=== PATIENT | female | born 1945 | race African-American/Black ===

== ENCOUNTER 2017-04-02 12:16 | Inpatient (IN) ==
[2017-04-02] MEDS ORDERED: LINACLOTIDE 145 MCG CAPSULE PO PRN (17:02)
[2017-04-02] MEDS ORDERED: ACETAMINOPHEN 325 MG TABLET PO PRN (17:03)
[2017-04-02] MEDS ORDERED: SODIUM CHLORIDE 0.9% 250 ML IV PRN (17:12)
--- NOTE | 2017-04-02 17:15 | Nephrology History & Physical ---
History of Present Illness Chief complaint: Anemia, fatigue, chronic kidney disease History of present illness: Mrs. Alejandre is a 71 year old female with history of hypertension GERD who presents with approximately 4 month history of increasing serum creatinine that started in October of this year. At that time patient was dealing with anemia she has had a history of a knee scope to look at the causes of the anemia and so far no cause has been found. However over the last several months, serum creatinine is trended up from 1-3 now up to 4. Patient was seen in clinic today and was found to have serum creatinine of 4.4. Moreover she has received 2 units packed red blood cells and at present hemoglobin is noted to be 8.1. Again patient does feel short of breath and fatigue at times. No rashes or bruises reported by the patient. No swelling of the legs. No joint aches or pains. She has been admitted at this particular time for further workup of her progressive renal failure as well as anemia. She has agreed to undergo a kidney biopsy for further evaluation. On outpatient basis, patient had a positive M spike on her electrophoresis. She is also been seen by hematology and at present further monitoring has been advised. 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 1 tablet PO DAILY 04/02/17 04/02/17 History [Calcium 600-D3 Plus Caplet] Cetirizine Tab [ZyrTEC Tab] 1 tablet PO DAILY 04/02/17 04/02/17 History Cyanocobalamin (Vitamin B-12) 1 tablet PO DAILY 04/02/17 04/02/17 History [Vitamin B-12] Linaclotide [Linzess] 1 capsule PO DAILY PRN 04/02/17 04/02/17 History Multivit-Min/FA/Lycopen/Lutein 1 tablet PO DAILY 04/02/17 04/02/17 History [Centrum Silver Tablet] Omeprazole 10 mg PO DAILY 04/02/17 04/02/17 History Oxybutynin [Ditropan] 5 mg PO DAILY 04/02/17 04/02/17 History Simvastatin [Zocor] 80 mg PO PC SUPPER 04/02/17 04/02/17 History amLODIPine [Norvasc] 10 mg PO DAILY 04/02/17 04/02/17 History Allergies Allergy/AdvReac Type Severity Reaction Status Date / Time augumentin Allergy Unknown Uncoded 04/02/17 15:45 Medical,Surgical,& Family Hx - Medical History Cardio: History of: Hypertension Psychological: No history of: Anxiety Disorders, ADHD, Behavior Problems, Bipolar Disorder, Depression, Previous Suicide Attempt, Psychiatric/Substance Abuse Tx, Schizophrenia, Violent Behavior, Psychiatric Problems Genitourinary: History of: Problems (bladder sling ) - Family History Family History: Reports;: Family Cancer, Family Heart Disease, Family Hypertension - Social History Smoking Status: Never smoker Frequency of Alcohol Use: None Type of Drug Use: None Exam - Nephrology - Vital Signs Vital signs: Vital Signs Temp Pulse Resp BP Pulse Ox 04/02/17 15:03 97.4 F L 98 H 20 111/71 100 - General Appearance General appearance: well-developed, well-nourished, fatigue EENT: ATNC Neck: supple Respiratory: clear Cardiology: regular rate, regular rhythm Gastrointestinal: normoactive bowel sounds, no masses Integumentary: no rash Neurologic: no focal deficit, alert and oriented x3, CN 3-12 intact Musculoskeletal: no erythema, no clubbing Psychiatric: mood/affect appropriate, cooperative Assessment and Plan (1) Anemia Status: Acute Assessment and plan: Etiologies and question for the anemia. B12 folate level. PT PTT. Iron iron sat. CBC in a.m. Current Visit: Yes Qualifiers: Anemia type: due to chronic kidney disease (2) Chronic kidney disease Status: Acute Assessment and plan: Appears to be acute renal failure versus acute on chronic renal failure. That is the nature of this admission at this time. Differential includes glomerulonephritis, focal segmental glomerulosclerosis, hypertension Plan for a kidney biopsy. Current Visit: Yes Qualifiers: Chronic kidney disease stage: stage 3 (moderate) Qualified Code(s): N18.3 - Chronic kidney disease, stage 3 (moderate) (3) Fatigue Status: Chronic Assessment and plan: Due to anemia Current Visit: Yes (4) Acute on chronic renal failure Status: Acute Assessment and plan: UA. Renal ultrasound is unremarkable. Kidney size noted to be 9 cm bilaterally. No evidence of hydronephrosis. Plan for a kidney biopsy on Sunday. Hepatitis panel, C3-C4, anti-GBM antibody, GIULIANA, hepatitis panel Current Visit: Yes (5) Hypertension Status: Chronic Current Visit: Yes Qualifiers: Hypertension type: essential hypertension Qualified Code(s): I10 - Essential (primary) hypertension
[2017-04-02 17:35] LABS: Basophils % 0.2 % (0.0-0.8); Eosinophils # 0.1 10*3/uL (0.0-0.87); Hematocrit 23.3 VOL% (35.7-47.0); Hemoglobin 7.8 GM/DL (12.0-16.0); Immature Granulocytes Absolute 0.09 #; Lymphocytes # 3.1 10*3/uL (1.4-4.0); Mean Corpuscular HGB Conc 33.5 GM/DL (32-36); Mean Corpuscular Hemoglobin 31 PG (27-34); Mean Corpuscular Volume 91.7 FL (87-102); Mean Platelet Volume 10.2 FL (9.6-12.0); Monocytes # 0.8 10*3/uL (0.11-0.8); Monocytes % 8.9 % (1.7-12.7); Neutrophils # 4.6 10*3/uL (1.4-7.4); Neutrophils % 52.9 % (38.7-73.9); Platelet Count 197 T/CUMM (130-400); Red Blood Count 2.54 MC/CUMM (3.8-5.5); Red Cell Distribution Width 14.3 % (9.3-17.3); White Blood Count 8.7 T/CUMM (4-12)
[2017-04-02 18:08] LABS: PT Patient Result 10.8 SECS; Partial Thromboplastin Time 22.5 SECS (0-40)
[2017-04-02 18:15] LABS: Alanine Aminotransferase 19 U/L (13-56); Albumin 4.1 G/DL (3.4-5.0); Alkaline Phosphatase 90 U/L (45-117); Aspartate Amino Transferase 15 U/L (0-37); Bilirubin,Total < 0.39 MG/DL (0.2-1.0); Blood Urea Nitrogen 44 MG/DL (7-18); Calcium 10.3 MG/DL (8.5-10.1); Glucose 111 MG/DL (74-106); Immunoglobulin A < 31 MG/DL (70-400); Immunoglobulin G 413 MG/DL (700-1600); Osmolality,Calculated 290.4 MOS/KG (273-304); Potassium 4.1 MMOL/L (3.5-5.1); Sodium 140 MMOL/L (136-145); Total Protein 7.3 G/DL (6.4-8.3)
[2017-04-02 18:16] LABS: Immunoglobulin M < 21 MG/DL (40-230)
[2017-04-02] MEDS: SIMVASTATIN 40 MG TABLET PO SCH (18:27)
[2017-04-02 18:49] LABS: Hepatitis A Ab IgM Quant 0.25 Index; Hepatitis A Ab IgM Result Negative (Negative); Hepatitis B Core IgM Quant 0.12 Index; Hepatitis B Core IgM Result Negative (Negative); Hepatitis B Surface Ag Quant 0.12 Index; Hepatitis B Surface Ag Result Negative (Negative); Hepatitis C Virus Ab Quant 0.03 Index; Hepatitis C Virus Ab Result Negative (Negative)
[2017-04-02 19:09] LABS: Apearance,Urine CLEAR (Clear); Bilirubin,Urine Negative (Negative); Blood, Urine Negative (Negative); Glucose,Urine (UA) Negative (Negative); Ketones,Urine Negative (Negative); Nitrite,Urine Negative (Negative); Protein,Urine 30 MG/DL; Squamous Epithelial Cell,Urine Occasional /HPF (0-10); Urine Color Straw (Yellow); Urine Specific Gravity 1.009 (1.001-1.035); Urine Urobilinogen < 2.0 EU/DL (0.2-1.0); WBC,Urine 5 /HPF (0-6)
[2017-04-02] MEDS: DOCUSATE SODIUM 100 MG CAPSULE PO SCH (20:37)
[2017-04-02] MEDS ORDERED: FUROSEMIDE 40 MG/4 ML VIAL IV ONE (20:42)
[2017-04-02] MEDS: SODIUM CHLORIDE 0.45% 1,000 ML IV SCH (21:22)
[2017-04-03] MEDS ORDERED: FUROSEMIDE 40 MG/4 ML VIAL IV ONE (00:35)
[2017-04-03 05:31] LABS: Basophils % 0.2 % (0.0-0.8); Eosinophils # 0.1 10*3/uL (0.0-0.87); Eosinophils % 1.3 % (0.00-10.9); Hematocrit 30.1 VOL% (35.7-47.0); Hemoglobin 10.5 GM/DL (12.0-16.0); Immature Granulocytes % 1.6 %; Immature Granulocytes Absolute 0.15 #; Lymphocytes % 32.5 % (21.3-54.2); Mean Corpuscular HGB Conc 34.9 GM/DL (32-36); Mean Corpuscular Hemoglobin 32 PG (27-34); Mean Corpuscular Volume 90.7 FL (87-102); Monocytes # 0.9 10*3/uL (0.11-0.8); Neutrophils % 54.4 % (38.7-73.9); Platelet Count 189 T/CUMM (130-400); Red Blood Count 3.32 MC/CUMM (3.8-5.5); Red Cell Distribution Width 14.3 % (9.3-17.3); White Blood Count 9.1 T/CUMM (4-12)
[2017-04-03 05:49] LABS: Immunoglobulin A (Chem) < 31 MG/DL (70-400); Immunoglobulin G (Chem) 413 MG/DL (700-1600); Immunoglobulin M (Chem) < 21 MG/DL (40-230)
[2017-04-03] MEDS: amLODIPine 10 MG TABLET PO SCH ×2 (08:13→08:34)
[2017-04-03] MEDS: CYANOCOBALAMIN 500 MCG TABLET PO SCH ×2 (08:13→08:34)
[2017-04-03] MEDS: CETIRIZINE 10 MG TABLET PO SCH ×2 (08:13→08:35)
[2017-04-03] MEDS: DOCUSATE SODIUM 100 MG CAPSULE PO SCH ×3 (08:13→20:58)
[2017-04-03] MEDS: PANTOPRAZOLE 40 MG TABLET PO SCH ×2 (08:13→08:35)
[2017-04-03] MEDS: CALCIUM (CARBONATE)/VITAMIN D 600 MG-400 UNIT TABLET PO SCH ×2 (08:13→08:35)
[2017-04-03] MEDS: MULTIVITAMIN (CENTRUM) TABLET PO SCH ×2 (08:13→08:35)
[2017-04-03] MEDS: OXYBUTYNIN 5 MG TABLET PO SCH ×2 (08:13→08:35)
[2017-04-03] MEDS ORDERED: ONDANSETRON 4 MG/2 ML VIAL IV PRN (08:34)
[2017-04-03] MEDS ORDERED: methylPREDNISolone SOD SUC INJ 1,000 MG in SODIUM CHLORIDE 0.9% 100 ML IV ONE (08:49)
[2017-04-03 08:51] LABS: Anti SS-A Antibodies < 16 EU/ML; Anti SS-B Antibodies < 16 EU/ML
--- NOTE | 2017-04-03 09:01 | Nephrology Progress Note ---
Nephrology - PN: Subj Interval history: Patient is resting comfortably. She did receive 2 units packed red blood cells last night. Hemoglobin is now 10.5 today. No shortness of breath or chest pain. Patient did get nauseated this morning. At present serologic studies have been unremarkable. She is scheduled for a kidney biopsy on tomorrow. Starting Solu-Medrol today. Exam (PN)-Nephrology - Vital Signs Vital signs: Period Temp Pulse Resp BP Sys/Ta Pulse Ox Last 24 Hr 97.1 F-98.2 F 82-103 16-20 104-139/52-83 94-100 - General Appearance General appearance: well-developed, well-nourished EENT: ATNC Neck: supple Respiratory: clear Cardiology: regular rate, regular rhythm Gastrointestinal: normoactive bowel sounds, no tenderness Integumentary: no rash Neurologic: alert and oriented x3 Musculoskeletal: no clubbing Psychiatric: mood/affect appropriate, cooperative - Lab 04/03/17 04:43 04/02/17 16:17 Most recent lab results Calcium 10.3 MG/DL (8.5-10.1) H 04/02/17 16:17 Assessment and Plan (1) Anemia Status: Acute Assessment and plan: Etiologies and question for the anemia. Now status post blood transfusion. CBC in a.m. Current Visit: Yes Qualifiers: Anemia type: due to chronic kidney disease (2) Chronic kidney disease Status: Acute Assessment and plan: Appears to be acute renal failure versus acute on chronic renal failure. That is the nature of this admission at this time. Differential includes glomerulonephritis, focal segmental glomerulosclerosis, hypertension Plan for a kidney biopsy. Current Visit: Yes Qualifiers: Chronic kidney disease stage: stage 3 (moderate) Qualified Code(s): N18.3 - Chronic kidney disease, stage 3 (moderate) (3) Fatigue Status: Chronic Assessment and plan: Due to anemia Current Visit: Yes (4) Acute on chronic renal failure Status: Acute Assessment and plan: UA. Renal ultrasound is unremarkable. Kidney size noted to be 9 cm bilaterally. No evidence of hydronephrosis. Plan for a kidney biopsy on Sunday. Hepatitis panel, C3-C4, anti-GBM antibody, GIULIANA, hepatitis panel Current Visit: Yes (5) Hypertension Status: Chronic Current Visit: Yes Qualifiers: Hypertension type: essential hypertension Qualified Code(s): I10 - Essential (primary) hypertension
[2017-04-03 09:21] LABS: Calcium 10.2 MG/DL (8.5-10.1); Osmolality,Calculated 290.4 MOS/KG (273-304); Potassium 4.3 MMOL/L (3.5-5.1)
[2017-04-03] MEDS ORDERED: MAGNESIUM HYDROXIDE SUSP 30 ML UDCUP PO PRN (14:05)
[2017-04-03] MEDS: SODIUM CHLORIDE 0.45% 1,000 ML IV SCH (14:17)
[2017-04-03] MEDS: SIMVASTATIN 40 MG TABLET PO SCH (17:03)
[2017-04-04 05:18] LABS: Basophils % 0.2 % (0.0-0.8); Eosinophils % 0.2 % (0.00-10.9); Hematocrit 29.7 VOL% (35.7-47.0); Hemoglobin 10.4 GM/DL (12.0-16.0); Immature Granulocytes % 2.2 %; Immature Granulocytes Absolute 0.28 #; Lymphocytes # 2.7 10*3/uL (1.4-4.0); Mean Corpuscular Hemoglobin 32 PG (27-34); Mean Platelet Volume 9.9 FL (9.6-12.0); Monocytes # 0.6 10*3/uL (0.11-0.8); Monocytes % 4.9 % (1.7-12.7); Neutrophils # 8.8 10*3/uL (1.4-7.4); Neutrophils % 70.5 % (38.7-73.9); Platelet Count 179 T/CUMM (130-400); Red Cell Distribution Width 14.3 % (9.3-17.3); White Blood Count 12.5 T/CUMM (4-12)
[2017-04-04 05:58] LABS: Bilirubin,Total 0.8 MG/DL (0.2-1.0); Osmolality,Calculated 293.7 MOS/KG (273-304); Potassium 4.8 MMOL/L (3.5-5.1); Total Protein 7.2 G/DL (6.4-8.3)
--- NOTE | 2017-04-04 08:59 | Nephrology Progress Note ---
Nephrology - PN: Subj Interval history: Patient is resting comfortably. She did receive 2 units packed red blood cells last night. Hemoglobin is now 10.5 today. No shortness of breath or chest pain. Patient did get nauseated this morning. At present serologic studies have been unremarkable. She is scheduled for a kidney biopsy on tomorrow. Starting Solu-Medrol today. 04/04/2017. The patient is resting comfortably. She does feel bloated. No shortness of breath or chest pain. Serum creatinine remains 4.6 today. She is scheduled for a kidney biopsy today. Exam (PN)-Nephrology - Vital Signs Vital signs: Period Temp Pulse Resp BP Sys/Ta Pulse Ox Last 24 Hr 97.5 F-98.5 F 84-96 18-20 101-120/61-71 94-96 - General Appearance General appearance: well-developed, well-nourished EENT: ATNC Neck: supple Respiratory: clear Cardiology: regular rate, regular rhythm Gastrointestinal: normoactive bowel sounds, no tenderness Neurologic: alert and oriented x3 Psychiatric: mood/affect appropriate, cooperative - Lab 04/04/17 04:32 04/04/17 04:32 Most recent lab results Calcium 10.0 MG/DL (8.5-10.1) 04/04/17 04:32 Assessment and Plan (1) Anemia Status: Acute Assessment and plan: Etiologies and question for the anemia. CBC in a.m. Current Visit: Yes Qualifiers: Anemia type: due to chronic kidney disease (2) Chronic kidney disease Status: Acute Assessment and plan: Plan for a kidney biopsy today. Current Visit: Yes Qualifiers: Chronic kidney disease stage: stage 3 (moderate) Qualified Code(s): N18.3 - Chronic kidney disease, stage 3 (moderate) (3) Fatigue Status: Chronic Assessment and plan: Due to anemia Current Visit: Yes (4) Acute on chronic renal failure Status: Acute Assessment and plan: UA. Renal ultrasound is unremarkable. Kidney size noted to be 9 cm bilaterally. No evidence of hydronephrosis. Plan for a kidney biopsy on Sunday. Hepatitis panel, C3-C4, anti-GBM antibody, GIULIANA, hepatitis panel Current Visit: Yes (5) Hypertension Status: Chronic Current Visit: Yes Qualifiers: Hypertension type: essential hypertension Qualified Code(s): I10 - Essential (primary) hypertension
[2017-04-04] MEDS: amLODIPine 10 MG TABLET PO SCH (09:24)
--- NOTE | 2017-04-04 10:10 | Inventional Radiology Consult ---
Assessment and Plan - Time spent with patient Time spent with patient: Less than 30 minutes (1) Acute on chronic renal failure Problem details: worsening renal function in 3-4 months with possible IgG [place] neph Status: Acute Assessment and plan: biopsy today Current Visit: Yes IR Consult - Data of Consult Patient: new to practice Consult date: 04/04/17 Requesting Physician: Naveen Moreno Jr. - Consult Narrative Reason for consult: worsening renal failure History of present illness: Hill is a 71 year old F With possible renal failure related to multiple myeloma. Biopsy is requested for further evaluation. Other past medical history includes hypertension. Kidney biopsy procedure was discussed in detail, risks and benefits were discussed. Patient agrees to proceed. 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 1 tablet PO DAILY 04/02/17 04/02/17 History [Calcium 600-D3 Plus Caplet] Cetirizine Tab [ZyrTEC Tab] 1 tablet PO DAILY 04/02/17 04/02/17 History Cyanocobalamin (Vitamin B-12) 1 tablet PO DAILY 04/02/17 04/02/17 History [Vitamin B-12] Linaclotide [Linzess] 1 capsule PO DAILY PRN 04/02/17 04/02/17 History Multivit-Min/FA/Lycopen/Lutein 1 tablet PO DAILY 04/02/17 04/02/17 History [Centrum Silver Tablet] Omeprazole 10 mg PO DAILY 04/02/17 04/02/17 History Oxybutynin [Ditropan] 5 mg PO DAILY 04/02/17 04/02/17 History Simvastatin [Zocor] 80 mg PO PC SUPPER 04/02/17 04/02/17 History amLODIPine [Norvasc] 10 mg PO DAILY 04/02/17 04/02/17 History Allergies/Adverse Reactions: Allergies Allergy/AdvReac Type Severity Reaction Status Date / Time augumentin Allergy Unknown Uncoded 04/02/17 15:45 12 point system: reviewed and no additional remarkable complaints except as stated Medical,Surgical,& Family Hx - Medical History Cardio: History of: Hypertension Psychological: No history of: Anxiety Disorders, ADHD, Behavior Problems, Bipolar Disorder, Depression, Previous Suicide Attempt, Psychiatric/Substance Abuse Tx, Schizophrenia, Violent Behavior, Psychiatric Problems Genitourinary: History of: Problems (bladder sling ) - Family History Family History: Reports;: Family Cancer, Family Heart Disease, Family Hypertension - Social History Smoking Status: Never smoker Frequency of Alcohol Use: None Type of Drug Use: None Exam - Labs CBC & BMP: 04/04/17 04:32 04/04/17 04:32 Lab Results: I have reviewed the past 24 hour labs Labs: INR 1.0 04/02/17 16:17 - Constitutional Vitals: Period Temp Pulse Resp BP Sys/Ta Pulse Ox Last 24 Hr 97.5 F-98.5 F 84-96 18-20 101-120/61-71 94-96 General appearance: over weight - Eye Eye exam: Present: EOMI - Respiratory Respiratory exam: Present: clear to auscultation bilaterally - Cardiovascular Cardiovascular exam: Present: regular rate and rhythm - GI/Abdominal GI/Abdominal exam: Present: normal bowel sounds - Neurological Exam Neurological exam: Present: alert, oriented X3 - Psychiatric Psychiatric exam: Present: normal affect, normal mood - Skin Skin exam: Present: normal color, dry
[2017-04-04] MEDS ORDERED: DIAZEPAM 5 MG TABLET PO ONE (10:24)
[2017-04-04] MEDS ORDERED: fentaNYL 100 MCG/2 ML VIAL IV ONE (10:24)
[2017-04-04] MEDS ORDERED: MIDAZOLAM 2 MG/2 ML VIAL IV ONE (10:24)
--- NOTE | 2017-04-04 12:57 | Post Interventional Procedure ---
Pre-op diagnosis: acute on chronic renal failure Post-op diagnosis: same Procedure: random renal biopsy Contrast: none Flouroscopy: none Radiologist: Reyes Limon Anesthesia: local Specimens: other (four total cores sent for renal specific pathology) Estimated blood loss: none Complications: none Condition: stable Description/Findings: left lower pole biopsy done minimal perinephric bleeding after biopsy but likely venous and should resolve with supportive care. Assessment and Plan - Time spent with patient Time spent with patient: Less than 30 minutes (1) Acute on chronic renal failure Problem details: worsening renal function in 3-4 months with possible IgG [place] neph Status: Acute Assessment and plan: biopsy today Current Visit: Yes
[2017-04-04] MEDS: CYANOCOBALAMIN 500 MCG TABLET PO SCH (13:31)
[2017-04-04] MEDS: CALCIUM (CARBONATE)/VITAMIN D 600 MG-400 UNIT TABLET PO SCH (13:31)
[2017-04-04] MEDS: CETIRIZINE 10 MG TABLET PO SCH (13:31)
[2017-04-04] MEDS: MULTIVITAMIN (CENTRUM) TABLET PO SCH (13:31)
[2017-04-04] MEDS: PANTOPRAZOLE 40 MG TABLET PO SCH (13:32)
[2017-04-04] MEDS: DOCUSATE SODIUM 100 MG CAPSULE PO SCH ×2 (13:32→20:12)
[2017-04-04] MEDS: OXYBUTYNIN 5 MG TABLET PO SCH (13:32)
--- NOTE | 2017-04-04 14:23 | CT Report ---
CT biopsy renal LT Clinical Information: 71-year-old female with acute on chronic renal failure, possibly related to new diagnosis of multiple myeloma. Physician: Dr. Limon Technique: Informed consent was obtained from the patient. Full explanation of the nature of the procedure, alternatives and risks were discussed, including risks of bleeding, infection and potential inability to diagnose with needle technique. Adjacent vascular and organ injury were also fully discussed. She expressed understanding and a desire to proceed. Formal timeouts were performed, per protocol. Lower pole the left kidney was targeted for random biopsy. CT guided localization of the lower pole left kidney was performed. Under real time guidance, 4 total core biopsies were obtained using a 18-gauge system and submitted in formalin and the [place] fixative for renal specific pathologic analysis. Follow-up imaging demonstrated no evidence of pneumothorax. There was minimal perinephric hemorrhage noted. A 5 minute delayed scan showed minimal change in the area of perinephric bleeding, likely venous. Estimated blood loss less than 5 cc. Total number of images for this study: 250 Conclusion: Technically successful CT guided left random renal biopsy as detailed above. Condition at completion: Stable. Follow-up: Patient to follow-up with referring physician . The patient is returned to the referral team for further follow-up and management. PROCEDURE INTERPRETED AT [facility] DEPARTMENT OF RADIOLOGY Final Report Signed by: Reyes Limon
--- NOTE | 2017-04-04 16:55 | Event Note ---
Patient is doing well following the renal biopsy. Minimal left flank pain but tolerating a diet well and no other complaints.
[2017-04-04] MEDS: SODIUM CHLORIDE 0.45% 1,000 ML IV SCH (19:52)
[2017-04-04] MEDS: SIMVASTATIN 40 MG TABLET PO SCH (20:11)
[2017-04-04] MEDS ORDERED: SODIUM PHOSPHATE ENEMA 133 ML BOTTLE RECTAL ONE (21:54)
[2017-04-05 05:33] LABS: Basophils % 0.1 % (0.0-0.8); Hematocrit 29.1 VOL% (35.7-47.0); Hemoglobin 10.2 GM/DL (12.0-16.0); Immature Granulocytes % 1.2 %; Immature Granulocytes Absolute 0.16 #; Lymphocytes # 1.3 10*3/uL (1.4-4.0); Lymphocytes % 9.7 % (21.3-54.2); Mean Corpuscular HGB Conc 35.1 GM/DL (32-36); Mean Corpuscular Hemoglobin 32 PG (27-34); Mean Corpuscular Volume 90.4 FL (87-102); Mean Platelet Volume 10.4 FL (9.6-12.0); Monocytes # 1.2 10*3/uL (0.11-0.8); Platelet Count 172 T/CUMM (130-400); Red Blood Count 3.22 MC/CUMM (3.8-5.5); Red Cell Distribution Width 14.2 % (9.3-17.3); White Blood Count 13.8 T/CUMM (4-12)
[2017-04-05 05:58] LABS: Calcium 9.1 MG/DL (8.5-10.1); Osmolality,Calculated 299.5 MOS/KG (273-304); Potassium 4.3 MMOL/L (3.5-5.1)
[2017-04-05] MEDS: amLODIPine 10 MG TABLET PO SCH (08:23)
[2017-04-05] MEDS: CYANOCOBALAMIN 500 MCG TABLET PO SCH (08:23)
[2017-04-05] MEDS: CALCIUM (CARBONATE)/VITAMIN D 600 MG-400 UNIT TABLET PO SCH (08:23)
[2017-04-05] MEDS: MULTIVITAMIN (CENTRUM) TABLET PO SCH (08:23)
[2017-04-05] MEDS: DOCUSATE SODIUM 100 MG CAPSULE PO SCH (08:24)
[2017-04-05] MEDS: CETIRIZINE 10 MG TABLET PO SCH (08:24)
[2017-04-05] MEDS: PANTOPRAZOLE 40 MG TABLET PO SCH (08:24)
[2017-04-05] MEDS: OXYBUTYNIN 5 MG TABLET PO SCH (08:24)
[2017-04-05 10:02] LABS: Albumin (UPER) 21.2 MG/DL; Albumin (UPER) Rel% 4.1 %; Alpha 1 (UPER) 18.1 MG/DL; Alpha 1 (UPER) Rel% 3.5 %; Alpha 2 (UPER) 13.5 MG/DL; Alpha 2 (UPER) Rel % 2.6 %; Beta (UPER) 11.9 MG/DL; Beta (UPER) Rel % 2.3 %; Gamma (UPER) 453.3 MG/DL
[2017-04-05 10:04] LABS: Gamma (UPER) Rel % 87.5 %
--- NOTE | 2017-04-05 12:00 | Discharge Summary ---
Hospital Course - Hospital Course Hospital Course: This hospitalization included patient admitted for anemia in preparation for kidney biopsy. Patient serum creatinine was noted to be 4.6 she underwent 2 units packed red blood cells and hemoglobin remained stable at 10. She did receive 1 g of Solu-Medrol the day before procedure. White blood cell count trended up however patient was afebrile. Urine cultures were unremarkable. She had a kidney biopsy done CT-guided biopsy done and continued to do acceptable post procedure. She had an urine studies for ELISA that suggested [place] light chain. The rest of her serologic markers were unremarkable. No shortness of breath or chest pain. No fevers or chills. Urine studies and urine cultures were negative. She is continued to do well. At this time she is reached maximal hospitalization and is ready for discharge. Serum creatinine remained 4.3 despite IV fluids. She will have further follow-up with me in 1 week. Diagnosis - Discharge Diagnosis (1) Anemia Status: Chronic (2) Chronic kidney disease Status: Chronic (3) Fatigue Status: Chronic (4) Acute on chronic renal failure Status: Acute (5) Hypertension Status: Chronic Specialty Discharge - Follow Up or Referrals Discharge Plan - Discharge Data Disposition: Disch To Home/Self Care Condition at Discharge: Stable Discharge Diet: advance to your usual diet Activity: resume usual activities as tolerated Contact your physician if you experience:: fever over 101 - Discharge Medications Continue amLODIPine [Norvasc] 10 mg PO DAILY Oxybutynin [Ditropan] 5 mg PO DAILY Cetirizine Tab [ZyrTEC Tab] 1 tablet PO DAILY Simvastatin [Zocor] 80 mg PO PC SUPPER Omeprazole 10 mg PO DAILY Multivit-Min/FA/Lycopen/Lutein [Centrum Silver Tablet] 1 tablet PO DAILY Linaclotide [Linzess] 1 capsule PO DAILY PRN PRN Reason: Constipation Cyanocobalamin (Vitamin B-12) [Vitamin B-12] 1 tablet PO DAILY Ca/D3/Mag Ox/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 Alexandre in 1 week with a BMP. Exam - Constitutional Vitals: Period Temp Pulse Resp BP Sys/Ta Pulse Ox Last 24 Hr 97.2 F-98.9 F 82-110 15-118 95-141/50-78 92-100 General appearance: normal weight - Head Head exam: Present: normal inspection - Eye Eye exam: Present: EOMI - ENT ENT exam: Present: normal exam - Respiratory Respiratory exam: Present: clear to auscultation bilaterally - Cardiovascular Cardiovascular exam: Present: regular rate and rhythm - GI/Abdominal GI/Abdominal exam: Present: normal bowel sounds - Extremities Exam Extremities exam: Present: normal inspection - Neurological Exam Neurological exam: Present: alert, oriented X3 - Psychiatric Psychiatric exam: Present: normal affect, normal mood Discharge Results Procedures and tests throughout hospitalization: Pending Orders 04/03/17 18:27 Consult to Interventional Rad Routine Labs on day of discharge: Labs from last 24 hours 04/05/17 04/05/17 04/03/17 04:33 04:33 06:25 WBC 13.8 H RBC 3.22 L Hgb 10.2 L Hct 29.1 L MCV 90.4 MCH 32 MCHC 35.1 RDW 14.2 Plt Count 172 MPV 10.4 Neut % (Auto) 80.0 H Lymph % (Auto) 9.7 L [place] % (Auto) 9.0 Eos % (Auto) 0.0 Baso % (Auto) 0.1 Neut # (Auto) 11.0 H Lymph # (Auto) 1.3 L [place] # (Auto) 1.2 H Eos # (Auto) 0.0 Baso # (Auto) 0.0 Immature Gran % 1.2 Nucleated RBC % 0.0 Immature Gran # 0.16 Nucleated RBCs # 0.00 Immature Plt Fraction 0.0 Sodium 139 Potassium 4.3 Chloride 106 Carbon Dioxide 23 Anion Gap 14.3 BUN 75 H Creatinine 4.30 H GFR Calculation 13 BUN/Creatinine Ratio 17.00 Glucose 114 H Calculated Osmolality 299.5 Calcium 9.1 Ur Random Albumin 21.2 Ur Random Albumin % 4.1 U Random Total Protein 518 H U Random j-2-Cagwleve 18.1 U Random t-4-Rikxqlrq % 3.5 U Usdgm-3-Yldyzssa 13.5 U Szjtd-2-Vblizfbr (%) 2.6 U Random Beta Globulin 11.9 U Random b-Globulin % 2.3 U Random Gamma Glob 453.3 U Random Gamma Glob % 87.5 Urine PEP Interpret Glomerular Base Mem IgG 04/02/17 16:17 WBC RBC Hgb Hct MCV MCH MCHC RDW Plt Count MPV Neut % (Auto) Lymph % (Auto) [place] % (Auto) Eos % (Auto) Baso % (Auto) Neut # (Auto) Lymph # (Auto) [place] # (Auto) Eos # (Auto) Baso # (Auto) Immature Gran % Nucleated RBC % Immature Gran # Nucleated RBCs # Immature Plt Fraction Sodium Potassium Chloride Carbon Dioxide Anion Gap BUN Creatinine GFR Calculation BUN/Creatinine Ratio Glucose Calculated Osmolality Calcium Ur Random Albumin Ur Random Albumin % U Random Total Protein U Random h-2-Ljpcaqkh U Random m-3-Okypxnqw % U Qeoob-3-Tdeleywr U Ptzhg-3-Hcnvaeyc (%) U Random Beta Globulin U Random b-Globulin % U Random Gamma Glob U Random Gamma Glob % Urine PEP Interpret Glomerular Base Mem IgG < 0.2 DS: Provider Date of admission: 04/02/17 14:36 Primary care physician: Kulwant Dominguez MD Attending physician on admission: Naveen Moreno Jr., MD Consults: 04/02/17 17:03 Consult to Physician [CONS] Routine Comment: kidney biopsy Consulting Provider: Reyes Lmion When should Consulting Provider be notified: In am Person Notified: md aware Date Notified: 04/03/17 Time Notified: 10:07 Discharging clinician: Naveen Moreno Jr., MD
[2017-04-05 12:29] VITALS: BP 107/65
--- NOTE | 2017-04-06 14:18 | Pathology Report from [facility] ---
[facility] ACCESSION # : [id number] PATIENT NAME : Andrea Alejandre ORDERING DR : Reyes Limon MD CLINICAL HX: History of HTN - Acute renal failure - May have a myeloma POST-OP DX: Same SPECIMEN INFO: Kidney biopsy GROSS DESCRIPTION: #1 Received in formalin labeled with the patients name ANDREA ALEJANDRE are two pieces of brooks tissue measuring 0.8 x 0.1 x 0.1 cm and 1.1 x 0.1 x 0.1 cm. Submitted to [facility] for evaluation.#2 Received in Price fixative labeled with the patients name ANDREA ALEJANDRE are two pieces of brooks/bloody tissue measuring 1.5 x 0.1 x 0.1 cm and 1.0 x 0.1 x 0.1 cm. Submitted for immunofluorescence microscopy to [facility]. DIAGNOSIS FOR ANDREA ALEJANDRE: The following is the report from Lorie Romo MD., 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 Interstitial fibrosis and tubular atrophy, moderate to severe. Arteriosclerosis, moderate to severe. See attached report. COLLECTED DATE: 04/04/2017 [facility] REPORT DATE: 04/06/2017 ELECTRONICALLY SIGNED BY: Cristo Anton M.D. 04/06/2017 - 12:20:24 [facility]ITAL[facility]
== END 2017-04-05 13:30 | disposition home or self-care (01) | DRG 683 ==
LOC: N.5E 14:36
PROVIDERS: ADMIT Internal Medicine Nephrology; ATTEND Internal Medicine Nephrology

== ENCOUNTER 2020-02-16 10:34 | Inpatient (IN) ==
[2020-02-16 11:21] LABS: Basophils % 0.3 % (0.0-0.8); Hematocrit 41.2 VOL% (35.7-47.0); Hemoglobin 12.8 GM/DL (12.0-16.0); Immature Granulocytes % 1.6 %; Immature Granulocytes Absolute 0.15 #; Lymphocytes # 1.6 10*3/uL (1.4-4.0); Lymphocytes % 16.6 % (21.3-54.2); Mean Corpuscular HGB Conc 31.1 GM/DL (32-36); Mean Corpuscular Volume 100.2 FL (87-102); Mean Platelet Volume 9.9 FL (9.6-12.0); Monocytes % 7.9 % (1.7-12.7); NRBC # 0.02 10*3/uL; Neutrophils % 73.6 % (38.7-73.9); Platelet Count 387 T/CUMM (130-400); Red Blood Count 4.11 MC/CUMM (3.8-5.5); Red Cell Distribution Width 15.9 % (9.3-17.3); White Blood Count 9.4 T/CUMM (4-12)
[2020-02-16 11:51] LABS: INR 1.1; PT Patient Result 11.7 SECS (9.8-11.9)
[2020-02-16 11:51] LABS: Albumin 3.7 G/DL (3.4-5.0); Bilirubin,Total 0.6 MG/DL (0.2-1.0); Calcium 9.7 MG/DL (8.5-10.1); Osmolality,Calculated 289.4 MOS/KG (273-304); Total Protein 7.3 G/DL (6.4-8.3)
[2020-02-16] MEDS ORDERED: SODIUM CHLORIDE 0.9% 1,000 ML IV STA (12:02)
[2020-02-16 12:36] LABS: Apearance,Urine CLEAR (Clear); Bilirubin,Urine Negative (Negative); Blood, Urine Negative (Negative); Glucose,Urine (UA) 50 mg/dL (Negative); Hyaline Casts,Urine 50 /LPF (0-3); Ketones,Urine Negative (Negative); Mucus,Urine Occasional /LPF (Occasional); Nitrite,Urine Negative (Negative); Protein,Urine 30 MG/DL; Squamous Epithelial Cell,Urine Occasional /HPF (0-10); Urine Color Yellow (Yellow); Urine Specific Gravity 1.023 (1.001-1.035); Urine Urobilinogen < 2.0 EU/DL (0.2-1.0); WBC,Urine 4 /HPF (0-6)
[2020-02-16] MEDS ORDERED: ENOXAPARIN 100 MG/ML SYRINGE SUBCUT STA (12:46)
[2020-02-16] MEDS: methylPREDNISolone SOD SUC 40 MG/1 ML VIAL IV SCH ×2 (16:46→22:54)
[2020-02-16] MEDS: CEFEPIME 1,000 MG in SODIUM CHLORIDE 0.9% 100 ML IV SCH (16:53)
[2020-02-16] MEDS: ALBUTEROL/IPRATROPIUM 3 ML NEB RESP TX SCH ×2 (19:32→23:55)
[2020-02-17] MEDS: ENOXAPARIN 120 MG/0.8 ML SYRINGE SUBCUT SCH ×2 (02:20→14:58)
[2020-02-17] MEDS: CEFEPIME 1,000 MG in SODIUM CHLORIDE 0.9% 100 ML IV SCH ×2 (03:14→15:05)
[2020-02-17 03:42] LABS: Basophils % 0.2 % (0.0-0.8); Hematocrit 34.4 VOL% (35.7-47.0); Hemoglobin 10.6 GM/DL (12.0-16.0); Immature Granulocytes Absolute 0.19 #; Lymphocytes # 0.8 10*3/uL (1.4-4.0); Mean Corpuscular HGB Conc 30.8 GM/DL (32-36); Mean Corpuscular Volume 100.6 FL (87-102); Monocytes % 10.4 % (1.7-12.7); Neutrophils % 79.4 % (38.7-73.9); Platelet Count 385 T/CUMM (130-400); Red Blood Count 3.42 MC/CUMM (3.8-5.5); Red Cell Distribution Width 16.1 % (9.3-17.3); White Blood Count 9.4 T/CUMM (4-12)
[2020-02-17 04:02] LABS: Calcium 8.7 MG/DL (8.5-10.1); Osmolality,Calculated 295.4 MOS/KG (273-304)
[2020-02-17] MEDS: ALBUTEROL/IPRATROPIUM 3 ML NEB RESP TX SCH ×5 (04:36→19:45)
[2020-02-17] MEDS: FAMOTIDINE 20 MG TABLET PO SCH (08:24)
[2020-02-17] MEDS: methylPREDNISolone SOD SUC 40 MG/1 ML VIAL IV SCH ×2 (08:24→14:59)
[2020-02-17] MEDS ORDERED: PANTOPRAZOLE 40 MG VIAL IV SCH (09:00)
[2020-02-17] MEDS: DILTIAZEM 60 MG TABLET PO SCH ×3 (10:38→20:42)
[2020-02-18] MEDS: methylPREDNISolone SOD SUC 40 MG/1 ML VIAL IV SCH ×4 (00:07→23:06)
[2020-02-18] MEDS: CEFEPIME 1,000 MG in SODIUM CHLORIDE 0.9% 100 ML IV SCH ×2 (03:20→16:09)
[2020-02-18] MEDS: ENOXAPARIN 120 MG/0.8 ML SYRINGE SUBCUT SCH ×2 (03:20→14:52)
[2020-02-18] MEDS: ALBUTEROL/IPRATROPIUM 3 ML NEB RESP TX SCH ×3 (03:35→07:25)
[2020-02-18 04:39] LABS: Calcium 8.4 MG/DL (8.5-10.1); Osmolality,Calculated 298.5 MOS/KG (273-304)
[2020-02-18] MEDS: FAMOTIDINE 20 MG TABLET PO SCH (08:06)
[2020-02-18] MEDS: DILTIAZEM 60 MG TABLET PO SCH (08:06)
[2020-02-18 08:34] LABS: ABG Base Excess -7.6 MMOL/L (-2.5-2.5); ABG HCO3 18.2 MMOL/L (20-26); ABG Oxygen Saturation 96.3 % (95-100); ABG PCO2 24.8 MM HG (35-48); ABG PH 7.409 (7.35-7.45); ABG PO2 80.5 MM HG (80-95); ABG TCO2 14.2 MMOL/L (23-27); Allen Test Positive
[2020-02-18] MEDS ORDERED: BENZONATATE 100 MG CAPSULE PO PRN (09:02)
[2020-02-18] MEDS ORDERED: LINACLOTIDE 145 MCG CAPSULE PO SCH (09:30)
[2020-02-18] MEDS: DILTIAZEM CD 240 MG CAPSULE PO SCH (09:56)
[2020-02-18] MEDS: CYANOCOBALAMIN 500 MCG TABLET PO SCH (09:56)
[2020-02-18] MEDS: OXYBUTYNIN 5 MG TABLET PO SCH (09:56)
[2020-02-18] MEDS: MULTIVITAMIN (CENTRUM) TABLET PO SCH (09:56)
[2020-02-18] MEDS: LORATADINE 10 MG TABLET PO SCH (09:56)
[2020-02-18] MEDS: LEVALBUTEROL 0.63 MG/3 ML NEB RESP TX SCH ×3 (12:03→19:32)
[2020-02-18] MEDS: SODIUM BICARB INJ 100 MEQ in DEXTROSE 5% 1,000 ML IV SCH ×2 (12:27→21:44)
[2020-02-18] MEDS ORDERED: SIMVASTATIN 80 MG TABLET PO SCH (18:00)
[2020-02-18] MEDS ORDERED: GLUCAGON 1 MG VIAL IM PRN (23:10)
[2020-02-18] MEDS ORDERED: DEXTROSE 50% 25 GM/50 ML VIAL IV PRN (23:10)
[2020-02-19] MEDS: METOPROLOL TARTRATE 25 MG TABLET PO SCH ×2 (00:01→08:33)
[2020-02-19] MEDS: LEVALBUTEROL 0.63 MG/3 ML NEB RESP TX SCH ×4 (00:27→14:05)
[2020-02-19] MEDS ORDERED: ALUMINUM/MAGNES/SIMETH MAX STR 30 ML UDCUP PO PRN (00:40)
[2020-02-19] MEDS: ENOXAPARIN 120 MG/0.8 ML SYRINGE SUBCUT SCH (01:01)
[2020-02-19] MEDS: CEFEPIME 1,000 MG in SODIUM CHLORIDE 0.9% 100 ML IV SCH ×2 (04:12→15:14)
[2020-02-19] MEDS: methylPREDNISolone SOD SUC 40 MG/1 ML VIAL IV SCH ×2 (05:59→14:11)
[2020-02-19 06:13] LABS: Basophils # 0.1 10*3/uL (0.0-0.2); Basophils % 0.4 % (0.0-0.8); Hematocrit 37.7 VOL% (35.7-47.0); Hemoglobin 11.6 GM/DL (12.0-16.0); Immature Granulocytes % 5.7 %; Immature Granulocytes Absolute 0.81 #; Lymphocytes # 1.2 10*3/uL (1.4-4.0); Lymphocytes % 8.4 % (21.3-54.2); Mean Corpuscular HGB Conc 30.8 GM/DL (32-36); Mean Corpuscular Volume 101.3 FL (87-102); Mean Platelet Volume 10.2 FL (9.6-12.0); NRBC # 0.35 10*3/uL; Neutrophils % 64.5 % (38.7-73.9); Platelet Count 427 T/CUMM (130-400); Red Blood Count 3.72 MC/CUMM (3.8-5.5); Red Cell Distribution Width 16.4 % (9.3-17.3); White Blood Count 14.1 T/CUMM (4-12)
[2020-02-19 06:33] LABS: Calcium 8.8 MG/DL (8.5-10.1); Osmolality,Calculated 293.7 MOS/KG (273-304)
[2020-02-19 06:42] LABS: Lymphocytes 5 % (20-55); Nucleated Red Blood Cells 2 (0-5); Platelet Estimate Adequate; Segmented Neutrophils 79 % (50-85); Total Cells Counted 100
[2020-02-19 06:43] LABS: Hypochromasia Slight
[2020-02-19] MEDS: ALBUTEROL/IPRATROPIUM 3 ML NEB RESP TX SCH ×2 (07:41→13:44)
[2020-02-19] MEDS: INSULIN REGULAR 100 UNIT/ML SUBCUT SCH ×2 (08:32→16:23)
[2020-02-19] MEDS: OXYBUTYNIN 5 MG TABLET PO SCH (08:33)
[2020-02-19] MEDS: DILTIAZEM CD 240 MG CAPSULE PO SCH (08:33)
[2020-02-19] MEDS: MULTIVITAMIN (CENTRUM) TABLET PO SCH (08:33)
[2020-02-19] MEDS: FAMOTIDINE 20 MG TABLET PO SCH (08:33)
[2020-02-19] MEDS: CYANOCOBALAMIN 500 MCG TABLET PO SCH (08:33)
[2020-02-19] MEDS: LORATADINE 10 MG TABLET PO SCH (08:33)
[2020-02-19] MEDS ORDERED: ENOXAPARIN 80 MG/0.8 ML SYRINGE SUBCUT ONE (13:00)
[2020-02-19] MEDS: SODIUM BICARB INJ 100 MEQ in DEXTROSE 5% 1,000 ML IV SCH (13:42)
[2020-02-19 15:16] VITALS: BP 133/75
[2020-02-19] MEDS ORDERED: NYSTATIN 500,000 UNIT/5 ML UDCUP SWISH/SWAL SCH (17:00)
[2020-02-20] MEDS ORDERED: RIVAROXABAN 20 MG TABLET PO SCH (08:00)
== END 2020-02-19 18:10 | disposition home health service (06) | DRG 300 ==
LOC: N.ED 10:34 → N.EDINP 13:32 → SUATTDRO 13:32 → N.EDINP 16:38 → N.ICU 16:41 → N.4E 02-18 17:47
PROVIDERS: ADMIT Internal Medicine; ATTEND Internal Medicine

== ENCOUNTER 2022-08-13 00:54 | Inpatient (IN) ==
[2022-08-13] MEDS ORDERED: DEXAMETHASONE 4 MG/1 ML VIAL IV STA (01:10)
[2022-08-13] MEDS ORDERED: ALBUTEROL NEB SOLN 5 MG/ML 20 ML/BOTTLE CONT NEB STA (01:10)
[2022-08-13] MEDS ORDERED: ALBUTEROL 2.5 MG/3 ML NEB RESP TX ONE (01:41)
[2022-08-13 02:34] LABS: Basophils % 0.3 % (0.0-0.8); Eosinophils # 0.3 10*3/uL (0.0-0.87); Eosinophils % 4.1 % (0.00-10.9); Hematocrit 43.9 VOL% (35.7-47.0); Hemoglobin 14.2 GM/DL (12.0-16.0); Immature Granulocytes % 0.6 %; Immature Granulocytes Absolute 0.04 #; Lymphocytes # 1.6 10*3/uL (1.4-4.0); Mean Corpuscular HGB Conc 32.3 GM/DL (32-36); Mean Corpuscular Volume 97.8 FL (87-102); Mean Platelet Volume 10.1 FL (9.6-12.0); Monocytes # 0.5 10*3/uL (0.11-0.8); Monocytes % 6.9 % (1.7-12.7); Neutrophils % 65.1 % (38.7-73.9); Platelet Count 232 T/CUMM (130-400); Red Blood Count 4.49 MC/CUMM (3.8-5.5); Red Cell Distribution Width 13.7 % (9.3-17.3); White Blood Count 6.86 T/CUMM (4-12)
[2022-08-13 02:52] LABS: Blood Urea Nitrogen 30 MG/DL (7-18); Carbon Dioxide 21 MMOL/L (21-32); Chloride 110 MMOL/L (98-107); Glucose 159 MG/DL (74-106); Osmolality,Calculated 289.3 MOS/KG (273-304); Potassium 4.3 MMOL/L (3.5-5.1); Sodium 141 MMOL/L (136-145)
[2022-08-13] MEDS ORDERED: LEVOFLOXACIN INJ 500 MG/100 ML PREMIX IV ONE (03:49)
[2022-08-13] MEDS ORDERED: SODIUM CHLORIDE 0.9% 2,000 ML IV STA (03:49)
[2022-08-13] MEDS ORDERED: ONDANSETRON 4 MG/2 ML VIAL IV PRN (04:39)
[2022-08-13 05:03] LABS: Bilirubin,Urine Negative (Negative); Blood, Urine Negative (Negative); Glucose,Urine (UA) Negative (Negative); Ketones,Urine Negative (Negative); Mucus,Urine Occasional /LPF (Occasional); Nitrite,Urine Negative (Negative); Protein,Urine Negative (Negative); Squamous Epithelial Cell,Urine Occasional /HPF (0-10); Urine Appearance Clear (Clear); Urine Color Yellow (Yellow); Urine Specific Gravity 1.015 (1.001-1.035); Urine Urobilinogen 0.2 eU/dL (<2.0); Urine pH 6.5 (4.5-8.0)
[2022-08-13 05:20] LABS: Basophils % 0.3 % (0.0-0.8); Eosinophils # 0.1 10*3/uL (0.0-0.87); Eosinophils % 1.3 % (0.00-10.9); Hematocrit 38.2 VOL% (35.7-47.0); Hemoglobin 12.2 GM/DL (12.0-16.0); Immature Granulocytes % 0.5 %; Immature Granulocytes Absolute 0.04 #; Lymphocytes # 1.1 10*3/uL (1.4-4.0); Lymphocytes % 14.1 % (21.3-54.2); Mean Corpuscular HGB Conc 31.9 GM/DL (32-36); Mean Corpuscular Volume 97.4 FL (87-102); Mean Platelet Volume 9.6 FL (9.6-12.0); Monocytes # 0.7 10*3/uL (0.11-0.8); Monocytes % 8.3 % (1.7-12.7); Neutrophils % 75.5 % (38.7-73.9); Platelet Count 236 T/CUMM (130-400); Red Blood Count 3.92 MC/CUMM (3.8-5.5); Red Cell Distribution Width 13.6 % (9.3-17.3); White Blood Count 7.97 T/CUMM (4-12)
[2022-08-13 05:46] LABS: Band Neutrophils 8 % (0-10); Eosinophils 1 % (0-10); Lymphocytes 14 % (20-55); Total Cells Counted 100
[2022-08-13 05:47] LABS: Platelet Estimate Normal
[2022-08-13 05:51] LABS: Bilirubin,Total 0.5 MG/DL (0.20-1.00); Calcium 8.4 MG/DL (8.5-10.1); Osmolality,Calculated 293.3 MOS/KG (273-304); Potassium 4.7 MMOL/L (3.5-5.1); Total Protein 5.2 G/DL (6.4-8.2)
[2022-08-13] MEDS ORDERED: MELATONIN 3 MG TABLET PO PRN (06:09)
[2022-08-13] MEDS ORDERED: DEXTROMETHORPHAN ER 6 MG/ML 90 ML/BOTTLE PO PRN (07:54)
[2022-08-13] MEDS ORDERED: PANTOPRAZOLE 40 MG VIAL IV SCH (09:00)
[2022-08-13] MEDS ORDERED: NITROFURANTOIN MACRO/MONO 100 MG CAPSULE PO SCH (09:00)
[2022-08-13] MEDS: RIVAROXABAN 20 MG TABLET PO SCH (11:31)
[2022-08-13] MEDS: SODIUM CHLORIDE 0.9% 1,000 ML IV SCH ×2 (11:31→18:18)
[2022-08-13] MEDS: MULTIVITAMIN (CENTRUM) TABLET PO SCH (11:32)
[2022-08-13] MEDS: DILTIAZEM CD 240 MG CAPSULE PO SCH (11:32)
[2022-08-13] MEDS: OXYBUTYNIN 5 MG TABLET PO SCH (11:32)
[2022-08-13] MEDS: CHOLECALCIFEROL 1,000 UNIT TABLET PO SCH (11:33)
[2022-08-13] MEDS: ASCORBIC ACID 500 MG TABLET PO SCH (11:33)
[2022-08-13] MEDS: POMALIDOMIDE 4 MG PO SCH (15:45)
[2022-08-13] MEDS ORDERED: SIMVASTATIN 80 MG TABLET PO SCH (18:00)
[2022-08-13] MEDS: clonazePAM 0.5 MG TABLET PO SCH (20:29)
[2022-08-13] MEDS: SIMVASTATIN 80 MG TABLET PO SCH (20:29)
[2022-08-13] MEDS: INSULIN REGULAR 100 UNIT/ML SUBCUT SCH (20:29)
[2022-08-13] MEDS ORDERED: SIMVASTATIN 40 MG TABLET PO SCH (21:00)
[2022-08-14] MEDS: SODIUM CHLORIDE 0.9% 1,000 ML IV SCH ×3 (05:25→22:12)
[2022-08-14 06:07] LABS: Eosinophils % 0.1 % (0.00-10.9); Hematocrit 33.7 VOL% (35.7-47.0); Hemoglobin 11.1 GM/DL (12.0-16.0); Immature Granulocytes % 0.7 %; Immature Granulocytes Absolute 0.06 #; Lymphocytes # 1.5 10*3/uL (1.4-4.0); Mean Corpuscular HGB Conc 32.9 GM/DL (32-36); Mean Corpuscular Volume 97.4 FL (87-102); Mean Platelet Volume 9.9 FL (9.6-12.0); Monocytes # 1.2 10*3/uL (0.11-0.8); Monocytes % 14.4 % (1.7-12.7); Neutrophils % 66.8 % (38.7-73.9); Platelet Count 262 T/CUMM (130-400); Red Blood Count 3.46 MC/CUMM (3.8-5.5); Red Cell Distribution Width 14.2 % (9.3-17.3); White Blood Count 8.56 T/CUMM (4-12)
[2022-08-14 06:24] LABS: Blood Urea Nitrogen 36 MG/DL (7-18); Calcium 8.5 MG/DL (8.5-10.1); Carbon Dioxide 16 MMOL/L (21-32); Chloride 114 MMOL/L (98-107); Glucose 224 MG/DL (74-106); Osmolality,Calculated 293.4 MOS/KG (273-304); Potassium 4.9 MMOL/L (3.5-5.1); Sodium 140 MMOL/L (136-145)
[2022-08-14] MEDS ORDERED: LEVOFLOXACIN INJ 500 MG/100 ML PREMIX IV SCH (08:00)
[2022-08-14] MEDS: INSULIN REGULAR 100 UNIT/ML SUBCUT SCH ×4 (10:08→20:55)
[2022-08-14] MEDS: OXYBUTYNIN 5 MG TABLET PO SCH (10:53)
[2022-08-14] MEDS: DILTIAZEM CD 240 MG CAPSULE PO SCH (10:54)
[2022-08-14] MEDS: RIVAROXABAN 20 MG TABLET PO SCH (10:54)
[2022-08-14] MEDS: MULTIVITAMIN (CENTRUM) TABLET PO SCH (10:54)
[2022-08-14] MEDS: clonazePAM 0.5 MG TABLET PO SCH ×2 (10:54→20:15)
[2022-08-14] MEDS: ASCORBIC ACID 500 MG TABLET PO SCH (10:54)
[2022-08-14] MEDS: CHOLECALCIFEROL 1,000 UNIT TABLET PO SCH (10:55)
[2022-08-14] MEDS: PANTOPRAZOLE 40 MG TABLET PO SCH (10:57)
[2022-08-14] MEDS: LEVOFLOXACIN INJ 250 MG/50 ML PREMIX IV SCH (10:58)
[2022-08-14] MEDS: methylPREDNISolone SOD SUC 40 MG/1 ML VIAL IV SCH ×2 (15:38→22:13)
[2022-08-14] MEDS: ALBUTEROL/IPRATROPIUM 3 ML NEB RESP TX SCH (20:00)
[2022-08-14] MEDS: SIMVASTATIN 80 MG TABLET PO SCH (20:56)
[2022-08-14] MEDS: ACETAMINOPHEN 325 MG TABLET PO PRN (20:56)
[2022-08-15] MEDS: ALBUTEROL/IPRATROPIUM 3 ML NEB RESP TX SCH ×4 (00:23→20:20)
[2022-08-15 05:00] LABS: Basophils % 0.1 % (0.0-0.8); Eosinophils % 0.1 % (0.00-10.9); Hematocrit 33.5 VOL% (35.7-47.0); Hemoglobin 11.1 GM/DL (12.0-16.0); Immature Granulocytes % 0.9 %; Immature Granulocytes Absolute 0.07 #; Lymphocytes # 1.4 10*3/uL (1.4-4.0); Lymphocytes % 17.3 % (21.3-54.2); Mean Corpuscular HGB Conc 33.1 GM/DL (32-36); Mean Corpuscular Volume 96.5 FL (87-102); Mean Platelet Volume 10.1 FL (9.6-12.0); Monocytes # 0.7 10*3/uL (0.11-0.8); Monocytes % 8.9 % (1.7-12.7); Neutrophils % 72.7 % (38.7-73.9); Platelet Count 278 T/CUMM (130-400); Red Blood Count 3.47 MC/CUMM (3.8-5.5); Red Cell Distribution Width 14.1 % (9.3-17.3); White Blood Count 7.96 T/CUMM (4-12)
[2022-08-15] MEDS: methylPREDNISolone SOD SUC 40 MG/1 ML VIAL IV SCH ×3 (05:08→20:31)
[2022-08-15 05:34] LABS: Albumin 2.9 G/DL (3.4-5.0); Bilirubin,Total 0.4 MG/DL (0.20-1.00); Calcium 8.4 MG/DL (8.5-10.1); Osmolality,Calculated 299.1 MOS/KG (273-304); Potassium 4.9 MMOL/L (3.5-5.1); Total Protein 5.9 G/DL (6.4-8.2)
[2022-08-15] MEDS: INSULIN REGULAR 100 UNIT/ML SUBCUT SCH ×4 (09:35→21:40)
[2022-08-15] MEDS: LEVOFLOXACIN INJ 250 MG/50 ML PREMIX IV SCH (09:40)
[2022-08-15] MEDS: SODIUM CHLORIDE 0.9% 1,000 ML IV SCH ×3 (09:41→23:17)
[2022-08-15] MEDS: MULTIVITAMIN (CENTRUM) TABLET PO SCH (09:42)
[2022-08-15] MEDS: clonazePAM 0.5 MG TABLET PO SCH ×2 (09:42→20:30)
[2022-08-15] MEDS: CHOLECALCIFEROL 1,000 UNIT TABLET PO SCH (09:42)
[2022-08-15] MEDS: RIVAROXABAN 20 MG TABLET PO SCH (09:43)
[2022-08-15] MEDS: PANTOPRAZOLE 40 MG TABLET PO SCH (09:43)
[2022-08-15] MEDS: DILTIAZEM CD 240 MG CAPSULE PO SCH (09:43)
[2022-08-15] MEDS: OXYBUTYNIN 5 MG TABLET PO SCH (09:43)
[2022-08-15] MEDS: ASCORBIC ACID 500 MG TABLET PO SCH (09:44)
[2022-08-15] MEDS: POMALIDOMIDE 4 MG PO SCH (09:44)
[2022-08-15] MEDS: SIMVASTATIN 80 MG TABLET PO SCH (20:30)
[2022-08-15] MEDS: ACETAMINOPHEN 325 MG TABLET PO PRN (23:16)
[2022-08-16] MEDS: ALBUTEROL/IPRATROPIUM 3 ML NEB RESP TX SCH ×3 (01:00→14:40)
[2022-08-16 05:01] LABS: Calcium 8.2 MG/DL (8.5-10.1); Osmolality,Calculated 299.1 MOS/KG (273-304); Potassium 4.6 MMOL/L (3.5-5.1)
[2022-08-16] MEDS: SODIUM CHLORIDE 0.9% 1,000 ML IV SCH ×2 (05:05→15:25)
[2022-08-16] MEDS: methylPREDNISolone SOD SUC 40 MG/1 ML VIAL IV SCH ×2 (05:23→14:39)
[2022-08-16] MEDS: LEVOFLOXACIN INJ 250 MG/50 ML PREMIX IV SCH (10:31)
[2022-08-16] MEDS: clonazePAM 0.5 MG TABLET PO SCH (10:31)
[2022-08-16] MEDS: ASCORBIC ACID 500 MG TABLET PO SCH (10:31)
[2022-08-16] MEDS: MULTIVITAMIN (CENTRUM) TABLET PO SCH (10:32)
[2022-08-16] MEDS: CHOLECALCIFEROL 1,000 UNIT TABLET PO SCH (10:32)
[2022-08-16] MEDS: PANTOPRAZOLE 40 MG TABLET PO SCH (10:32)
[2022-08-16] MEDS: RIVAROXABAN 20 MG TABLET PO SCH (10:32)
[2022-08-16] MEDS: DILTIAZEM CD 240 MG CAPSULE PO SCH (10:32)
[2022-08-16] MEDS: OXYBUTYNIN 5 MG TABLET PO SCH (10:32)
[2022-08-16] MEDS: INSULIN REGULAR 100 UNIT/ML SUBCUT SCH ×2 (10:33→13:17)
[2022-08-16 13:54] VITALS: BP 124/73
== END 2022-08-16 16:19 | disposition home or self-care (01) | DRG 202 ==
LOC: N.ED 00:54 → N.EDINP 04:37 → N.TELES 07:33
PROVIDERS: ADMIT Internal Medicine; ATTEND Internal Medicine